=== PATIENT | male | born 1965 | race Caucasian/White ===

== ENCOUNTER 2025-01-30 09:30 | Outpatient (AMB) | payer BC, SELFPAY ==
--- NOTE | 2025-01-30 09:38 | MHC.OFFVIS ---
Vital Signs 01/30/25 09:47 Height 5 ft 11 in Weight 165 lb BMI 23.0 Intake Visit Reasons: NPV-Back pain (imaging @ [facility]) Intake Note: This is a 60 year old male here for New Patient visit for low pack pain, X-ray done at [facility]. Metal Off Bearer Required: No Allergies No Known Allergies Allergy (Verified 01/30/25 09:49) Medication List - Last Reconciled 01/30/25 by Annmarie Dodson RN No Known Home Meds HPI Comments Details: History of Present Illness The patient is a 60-year-old male presenting with chronic back pain. The back pain is characterized by stiffness, particularly after prolonged sitting, and is managed with ice and heat applications. The pain is primarily in the mid-back, occasionally radiating to the lower back and hip, more on the right side. The patient has arthritis and disc degeneration, with x-ray findings indicating degenerative disc disease. These conditions are attributed to natural wear and tear, possibly worsened by his active lifestyle, including activities like golf and skiing. The patient also has colitis, affecting his medication options, particularly NSAIDs. He has a history of knee surgery, limiting certain exercises, but maintains an active lifestyle with TRX workouts, yoga, and biking. He uses Tylenol occasionally and has found muscle relaxants like cyclobenzaprine effective during acute pain episodes. Pain Description - Onset and Timing: Chronic, persistent pain with stiffness, particularly after prolonged sitting. - Quality and Character: Stiffness rather than debilitating pain. - Primary Location: Mid-back, occasionally radiating to lower back and hip, predominantly on the right side. - Exacerbating Factors: Prolonged sitting, rotational exercises. - Relieving Factors: Ice, heat, and occasional use of Tylenol. Results - Imaging: X-ray confirms [id number] degenerative disc disease. [facility] Social History (Updated 01/30/25 @ 09:45 by Candis Hess MA) Alcohol intake: current Alcohol intake frequency: holidays/special occasions only Patient Tobacco Use Status: Never used Tobacco Review of Systems Narrative Review of Systems - Musculoskeletal: Reports stiffness in the back, denies debilitating pain. - Neurological: Denies radiating pain to legs, denies weakness. - Gastrointestinal: Reports history of colitis, avoids certain foods and medications. Physical Exam Exam Exam: Thoracic spine: He is tender to the T7 spinous process. His chest rises and falls symmetrically. His chest rise and falls symmetrically. Lumbar Spine: He is tender to lower lumbar facets. He is otherwise nontender. Full range of motion of his lumbar spine. He does have an increase in pain with facet loading. Lhermittes sign: Negative Heel Toe walk: Normal Left straight leg raise: Negative Right straight leg raise: Negative Special tests Yvette test: Negative Ganslen's test: Negative SI Joint compression test: Negative Janna test: Negative Piriformis stretch: Negative Lower Extremities: Full range of motion bilateral lower extremities. No calf pain or edema. Lower Extremities Sensation: Intact to lower extremities bilaterally Strength L2 (Psoas): 5/5 on the left and 5/5 on the right. L3 (Quadriceps): 5/5 on the left and 5/5 on the right. L4 (Anterior tibialis): 5/5 on the left and 5/5 on the right. L5 (extensor hallucis longus) 5/5 on the left and 5/5 on the right. S1 (gastrocnemius): 5/5 on the left and 5/5 on the right. Deep tendon reflexes L4: (Patellar) Left 2+ Right 2+ S1: (Achilles) Left 2+ Right 2+ Babinski: Downgoing No pathologic clonus. No involuntary movement. Vital Signs: BMI result Body Mass Index 23.0 Assessment & Plan Assessment & Plan (1) Spondylosis: Code(s): M47.9 - Spondylosis, unspecified Category: Medical (2) Back pain: Code(s): M54.9 - Dorsalgia, unspecified Category: Medical Plan Pain Management - Affect: Pain impacts daily activities but is managed with exercise and lifestyle modifications. - Analgesia: Occasional use of Tylenol and muscle relaxants like cyclobenzaprine during acute episodes. - Adverse Effects: Avoidance of NSAIDs due to colitis. - Activities of Daily Living: Maintains an active lifestyle with modifications to exercise routines. - Aberrant Drug Related Behaviors: None reported. Plan Patient was informed and verbally consented to the use of an ambient scribe for clinic note documentation during this visit. 1. Back Pain The patient will continue wit home exercises for back pain management, with the addition of turmeric as a natural anti-inflammatory. Cyclobenzaprine is prescribed for acute pain episodes, and NSAIDs are avoided due to colitis. The patient is encouraged to maintain an active lifestyle with appropriate exercise modifications. 2. Arthritis Management of arthritis includes lifestyle changes to minimize joint stress, focusing on low-impact exercises and avoiding high-impact activities. Turmeric is recommended as a natural anti-inflammatory, with a consultation with a overseer kosher kitchen advised due to colitis. 3. Disc Degeneration Disc degeneration management includes physical therapy and exercises to enhance back strength and flexibility. The patient is advised to avoid rotational exercises and consider turmeric for its anti-inflammatory properties. Thank you for allowing me to participate in the care of your patient. Coding Level of Care Code Tele New Pt Level 3 (40754) Diagnoses Spondylosis M47.9 Back pain M54.9
[2025-01-30 09:47] VITALS: BMI 23.0
--- OUTSIDE RECORDS SUMMARY | 2025-01-30 10:46 | XMS_ITS | Clinical Summary ---
Author Organization [facility] Address [address] [place] [phone] Phone Care Team Providers Care Data [employer] Software Consultant Name Role Phone Kory Mtz Primary Care Provider + [phone] Allergies No known active allergies Medications multivitamin tablet Take 1 tablet by mouth 1 (one) time each day. Active Surgical History Surgery Date Site/Laterality Comments KNEE SURGERY Right TOTAL COLECTOMY 03/26/1988 - 03/25/1989 Medical History Medical History Date Comments Ulcerative colitis ([facility] V24, [facility] V28) Social History Tobacco Use Types Packs/Day Years Used Date Smoking Tobacco: Never Smokeless Tobacco: Never Tobacco Cessation:Counseling Given: Not Answered Alcohol Use Standard Drinks/Week Comments Yes 0 (1 standard drink = 0.6 oz pur e alcohol) once/month Interpersonal Safety Answer Date Record ed Physical Abuse Unrecognized value 02/11/2024 Verbal Abuse Unrecognized value 02/11/2024 Sex and Gender Information Value Date Recorded Sex Assigned at Not on file Legal Sex Male 5:11 PM EST Gender Identity Not on file Sexual Orientation Not on file Obstetrics History Last Filed Vital Signs Vital Sign Reading Time Taken Comments Blood Pressure 119/83 02/11/2024 8:53 AM EST Pulse 61 02/11/2024 8:53 AM EST Temperature 36.3 C (97.3 F) 02/11/2024 8:33 AM EST Respiratory Rate 16 02/11/2024 8:53 AM EST Oxygen Saturation 99% 02/11/2024 8:53 AM EST Inhaled Oxygen Concentration - - Weight 72.6 kg (160 lb) 02/11/2024 7:52 AM EST Height 180.3 cm (5' 11 ) 02/11/2024 7:52 AM EST Body Mass Index 22.32 02/11/2024 7:52 AM EST Plan of Treatment Health Maintenance Due Date Last Done Comments DTaP,Tdap,and Td Vaccines (1 - Tdap) 01/26/1983 Pneumococcal Vaccine: 50+ Years (1 of 1 - PCV) 01/26/2014 Zoster Vaccines (2 of 2) 07/12/2022 05/17/2022 Cholesterol Screening (Lipid Panel) 01/09/2024 HIV Screening 01/09/2024 Hepatitis C Screening 01/09/2024 Social Influencers of Health Screening 01/09/2024 Depression Screening 03/26/2024 Influenza Vaccine (#1) 2024 , 12/25/2022, 12/27/2019, Additional history exists RSV Immunization Adult Patients (1 - 1-dose 75+ series) 01/26/2039 COVID-19 Vaccine Completed 12/19/2023, , 01/19/2021, Additional history exists Colorectal Cancer Screening: Colonoscopy Discontinued 02/11/2024 HIB Vaccines Aged Out No longer eligi ble based on patient's age to complete this topic HPV Vaccines Aged Out No longer eligi ble based on patient's age to complete this topic Hepatitis A Vaccines Aged Out No long er eligible based on patient's age to complete this topic Hepatitis B Vaccines Aged Out No long er eligible based on patient's age to complete this topic IPV Vaccines Aged Out No longer eligi ble based on patient's age to complete this topic MMR Vaccines Aged Out No longer eligi ble based on patient's age to complete this topic Meningococcal ACWY Vaccine Aged Out N o longer eligible based on patient's age to complete this topic Meningococcal B Vaccine Aged Out No l onger eligible based on patient's age to complete this topic RSV Immunization Patients Under 20 months Aged Out No longer eligible based on patient's age to complete this topic Varicella Vaccines Aged Out No longer eligible based on patient's age to complete this topic Procedures Procedure Name Priority Date/Time Associated Diagnosis Comments COLONOSCOPY Routine 02/11/2024 8:32 AM EST Ulcerative (chronic) pancolitis without complications (CMS/HCC V24, CMS/HCC V28) from Last 3 Months or Most Recently Relevant to Health Maintenance Results * COLONOSCOPY Anesthesia - MAC; [facility] ENDOSCOPY (02/11/2024 8:32 AM EST) Anatomical Region Laterality Modality Endoscopy 02/11/2024 8:04 AM EST Impressions 02/11/2024 8:23 AM EST - A few erosions in the ileoanal pouch. Biopsied. Recommendation: - Await pathology results. - Resume previous diet. - Continue present medications. Narrative 02/11/2024 8:[address] [facility] Patient Name: Kacy Echevarria Procedure Date: 02/11/2024 8:04 AM Date of : 1965 Age: 59 Gender: Male Note Status: Finalized Attending MD: Talat Mcnamara MD, Procedure Date No Time: 02/11/2024 Procedure: Pouchoscopy Indications: History of total colectomy, High risk colon cancer surveillance: Ulcerative pancolitis of 8 (or more) years duration Providers: Talat Mcnamara MD Referring MD: Talat Mcnamara MD Medicines: Monitored Anesthesia Care Complications: No immediate complications. Estimated Blood Loss: Estimated blood loss was minimal. Procedure: After obtaining informed consent, the endoscope was passed under direct vision. Throughout the procedure, the patient's blood pressure, pulse, and oxygen saturations were monitored continuously. The Olympus Gastroscope was introduced through the anus and advanced to the xiang-terminal ileum. The procedure was performed without difficulty. The patient tolerated the procedure well. The quality of the bowel preparation was adequate. Findings: The ileoanal pouch contained a few non-bleeding erosions. These along suture line. Otherwise looked fine, and distal ileum inspected and fine as well.. Biopsies were taken with a cold forceps for histology. Procedure Code(s): --- Professional --- 26150, Endoscopic evaluation of small intestinal pouch (eg, Kock pouch, ileal reservoir [S or J]); with biopsy, single or multiple Diagnosis Code(s): --- Professional --- K51.00, Ulcerative (chronic) pancolitis without complications K63.3, Ulcer of intestine Z90.49, Acquired absence of other specified parts of digestive tract CPT copyright 2020 [employer]. All rights reserved. The codes documented in this report are preliminary and upon filter press pumper review may be revised to meet current compliance requirements. MD Talat Kaye MD 02/11/2024 8:23:08 AM This report has been signed electronically.Talat Mcnamara MD Number of Addenda: 0 Note Initiated On: 02/11/2024 8:04 AM Scope In: Scope Out: Endoscopy Department at [facility] - [address] [place] [phone] Procedure Note Talat Mcnamara MD - 02/11/2024 [facility] Patient Name: Kacy Echevarria Procedure Date: 02/11/2024 8:04 AM Date of : 1965 Age: 59 Gender: Male Note Status: Finalized Attending MD: Talat Mcnamara MD, Procedure Date No Time: 02/11/2024 Procedure: Pouchoscopy Indications: History of total colectomy, High risk colon cancer surveillance: Ulcerative pancolitis of 8 (or more) years duration Providers: Talat Mcnamara MD Referring MD: Talat Mcnamara MD Medicines: Monitored Anesthesia Care Complications: No immediate complications. Estimated Blood Loss: Estimated blood loss was minimal. Procedure: After obtaining informed consent, the endoscope was passed under direct vision. Throughout theprocedure, the patient's blood pressure, pulse, and oxygen saturations were monitored continuously. TheOlympus Gastroscope was introduced through the anus and advanced to the xiang-terminal ileum. The procedurewas performed without difficulty. The patient tolerated the procedure well. The quality of the bowel preparation was adequate. Findings: The ileoanal pouch contained a few non-bleeding erosions. These along suture line. Otherwise looked fine, and distal ileum inspected and fine as well.. Biopsies were taken with a cold forceps forhistology. Procedure Code(s): --- Professional --- 33990, Endoscopic evaluation of small intestinalpouch (eg, Kock pouch, ileal reservoir [S or J]); with biopsy, single or multiple Diagnosis Code(s): --- Professional --- K51.00, Ulcerative (chronic) pancolitis without complications K63.3, Ulcer of intestine Z90.49, Acquired absence of other specified partsof digestive tract CPT copyright 2020 [employer]. All rights reserved. The codes documented in this report are preliminary and upon filter press pumper reviewmay be revised to meet current compliance requirements. MD Talat Kaye MD 02/11/2024 8:23:08 AM This report has been signed electronically.Talat Mcnamara MD Number of Addenda: 0 Note Initiated On: 02/11/2024 8:04 AM Scope In: Scope Out: Endoscopy Department at [facility] - [address] [place] [phone] IMPRESSION: - A few erosions in the ileoanal pouch. Biopsied. Recommendation: - Await pathology results. - Resume previous diet. - Continue present medications. Talat Mcnamara MD GI~PROCEDURE ORDERABLES Final R esult from Last 3 Months or Most Recently Relevant to Health Maintenance Insurance [facility] Care Teams Data Communications Software Consultant Relationship Specialty Start Date End Date Kory Mtz PA [address] [phone] PCP - General Internal Medicine 02/07/24
--- OUTSIDE RECORDS SUMMARY | 2025-01-30 10:46 | XMS_ITS | Data Portability ---
Author Organization [facility], Main Office Address [address] [facility] [address] [place] [address] Care Team Providers Care Ota Name Role Phone ALAN CHRISTIE Primary Care Provider TALAT SOSA 3D Artist PATEL DENNIS Color Paste Mixer [facility] PHYSICALTH ERAPY (FRANK PAL[place]) Orthopedic Surgeon Unavailable Psychologist Unavailable Assessment Encounter Date Assessment Date Assessment LastModified by Organization Details LastModified Time 06/24/2024 06/24/2024 This service was provided using telemedicine. Patient consented to telephone visit Patient was located other than home in the [facility]. Provider was located in the office. No other persons participated in the telemedicine visit except for the patient unless otherwise indicated here. Total time of visit was 13 minutes. pmadden Not available 06/24/2024 16:40:09 Plan of Treatment Reminders Order Date Submit Date Provider Last Modified By Organization Details Last Modified Time Details Appointments None record ed. Lab HbA1c (hemog lobin A1c), blood 2024 025 DARIUS [facility] (Centralized Electronic Ordering - All Locations), Patient Can Go To The Location Of Their Choice, [address] 08:07:04 testos terone , free + total, serum 2024 025 DARIUS [facility] (Centralized Electronic Ordering - All Locations), Patient Can Go To The Location Of Their Choice, [address] 08:07:03 CMP, serum or plasma 2024 025 DARIUS [facility] (Centralized Electronic Ordering - All Locations), Patient Can Go To The Location Of Their Choice, [address] 5 08:07:03 CBC w/ auto diff 2024 025 DARIUS [facility] (Centralized Electronic Ordering - All Locations), Patient Can Go To The Location Of Their Choice, [address] 5 08:07:02 PSA, total, serum or plasma 2023 024 DARIUS [facility] (Centralized Electronic Ordering - All Locations), Patient Can Go To The Location Of Their Choice, [address] 5 06:08:17 lipid panel, serum 2022 023 DARIUS [facility], [address], [address], [place], [address], 4 06:07:54 CBC w/ auto diff 2022 023 [email or web address] [facility], [address], [address], [place], [address], 4 11:06:20 CMP, serum or plasma 2022 023 DARIUS [facility], [address], [address], [place], [address], 4 06:07:52 Referral physic al medici ne and rehabi litati on referr de 2024 025 justin Jade MD, [address] [facility], [address], [place], [address], 5 09:44:13 hand surgeo n referr al 2024 025 DARIUS Garcia MD, [facility], [place], [address], 5 14:58:18 gastro entero logist referr al 2023 024 carlos Sosa MD, [address] [facility], [address], [place], [address], 11:59:10 Procedures None record ed. Surgeries None record ed. Imaging XR, lumbar spine 2024 025 [facility], [address] [facility], [place], [place], [address], 09:42:28 Medication Orders silden afil 50 mg tablet 2024 025 [facility]armacy #[id number], [address], [place], [address], 16:35:48 econaz ole nitrat e 1 % topica l cream [email or web address]/Pharmacy #[id number], [address], [place], [address], 14:36:33 Patient Targets Encounter Date Encounter Id Patient Goals Patient Target Last Modified By Organization Details Last Modified Time 10/20/2024 [id number] Ongoing of LDL Direct <100 Not available Not available Not available Ongoing of LDL Direct yearly Not available Not available Not available 10/20/2024 [id number] Pt agrees to follow low fat diet, avoid saturated fats , decrease carbohydrate intake to 45 - 50 gm per meal , pt agrees to develop a regular pattern of exercise such as walking 30 minutes a day 3 times a week, Pt will keep a record of exercise and activity level Patient preferences and goals incorporated in plan and updated/modifie d as needed to reflect progress toward goal. pmadden Not available 10/20/2024 09:40:32 Patient Instructions Encounter Date Encounter Id Patient Instructions Last Modified By Organization Details Last Modified Time 05/10/2022 [id number] Patient will follow up and keep appointment as scheduled. pmadden Not available 05/10/2022 15:39:40 10/16/2022 [id number] A healthy lifestyle: care instructions pmadden Not available 10/16/2022 15:28:58 Well Visit 50 to 65: Care Instructions pmadden Not available 10/16/2022 15:28:58 Medications (OTC , herbal therapies, supplements) reviewed and reconciled with patient and or caregiver, including potential side effects, drug interactions, instructions, and the consequences of not taking medication. Reviewed potential barriers to medication adherence, such as side effects from medication or cost of medication. pmadden Not available 10/16/2022 15:32:14 10/18/2023 [id number] Prostate Cancer Screening pmadden Not available 10/18/2023 14:09:24 Well Visit 50 to 65: Care Instructions pmadden Not available 10/18/2023 14:09:24 Medications (OTC , herbal therapies, supplements) reviewed and reconciled with patient and or caregiver, including potential side effects, drug interactions, instructions, and the consequences of not taking medication. Reviewed potential barriers to medication adherence, such as side effects from medication or cost of medication. pmadden Not available 10/18/2023 14:09:06 06/24/2024 [id number] Dupuytren's Disease: Care Instructions pmadden Not available 06/24/2024 16:40:38 Patient will follow up and keep appointment as scheduled. pmadden Not available 06/24/2024 16:41:00 10/20/2024 [id number] Well Visit 50 to 65: Care Instructions pmadden Not available 10/20/2024 09:32:27 Medications (OTC , herbal therapies, supplements) reviewed and reconciled with patient and or caregiver, including potential side effects, drug interactions, instructions, and the consequences of not taking medication. Reviewed potential barriers to medication adherence, such as side effects from medication or cost of medication. 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 METAB OLIC PANEL (14) glucose 92 mg/dL 70-99 Not Available [facility] ([facility]) [address] [place], [address], 09/11/2023 06:07:52 09/10/19 24 09/10/2023 COMP. METAB OLIC PANEL (14) BUN 18 mg/dL 6-24 Not Available [facility] ([facility]) [address] [place], [address], 09/11/2023 06:07:52 09/10/19 24 09/10/2023 COMP. METAB OLIC PANEL (14) creatinine 0.98 mg/dL 0.76-1 .27 Not Available [facility] ([facility]) [address] [place], [address], 09/11/2023 06:07:52 09/10/19 24 09/10/2023 COMP. METAB OLIC PANEL (14) eGFR 89 mL/mi n/1.7 3 >59 Not Available [facility] ([facility]) [address] [place], [address], 09/11/2023 06:07:52 09/10/19 24 09/10/2023 COMP. METAB OLIC PANEL (14) BUN/creatini ne ratio 18 9-20 Not Available [facility] ([facility]) [address] [place], [address], 09/11/2023 06:07:52 09/10/19 24 09/10/2023 COMP. METAB OLIC PANEL (14) sodium 138 mmol/ L 134-14 4 Not Available [facility] ([facility]) [address] [place], [address], 09/11/2023 06:07:52 09/10/19 24 09/10/2023 COMP. METAB OLIC PANEL (14) potassium 4.7 mmol/ L 3.5-5. 2 Not Available [facility] ([facility]) [address] [place], [address], 09/11/2023 06:07:52 09/10/19 24 09/10/2023 COMP. METAB OLIC PANEL (14) chloride 103 mmol/ L 96-106 Not Available [facility] ([facility]) [address] [place], [address], 09/11/2023 06:07:52 09/10/19 24 09/10/2023 COMP. METAB OLIC PANEL (14) carbon dioxide, total 24 mmol/ L 20-29 Not Available [facility] ([facility]) [address] [place], [address], 09/11/2023 06:07:52 09/10/19 24 09/10/2023 COMP. METAB OLIC PANEL (14) calcium 9.0 mg/dL 8.7-10 .2 Not Available [facility] ([facility]) [address] [place], [address], 09/11/2023 06:07:52 09/10/19 24 09/10/2023 COMP. METAB OLIC PANEL (14) protein, total 6.9 g/dL 6.0-8. 5 Not Available [facility] ([facility]) [address] [place], [address], 09/11/2023 06:07:52 09/10/19 24 09/10/2023 COMP. METAB OLIC PANEL (14) albumin 4.3 g/dL 3.8-4. 9 Not Available [facility] ([facility]) [address] [place], [address], 09/11/2023 06:07:52 09/10/19 24 09/10/2023 COMP. METAB OLIC PANEL (14) globulin, total 2.6 g/dL 1.5-4. 5 Not Available [facility] ([facility]) [address] [place], [address], 09/11/2023 06:07:52 09/10/19 24 09/10/2023 COMP. METAB OLIC PANEL (14) bilirubin, total 0.6 mg/dL 0.0-1. 2 Not Available [facility] ([facility]) [address] [facility], [place], [address], 09/11/2023 06:07:52 09/10/19 24 09/10/2023 COMP. METAB OLIC PANEL (14) alkaline phosphatase 64 IU/L 44-121 Not Available [facility] ([facility]) [address] [facility], [place], [address], 09/11/2023 06:07:52 09/10/19 24 09/10/2023 COMP. METAB OLIC PANEL (14) AST (SGOT) 27 IU/L 0-40 Not Available [facility] ([facility]) [address] [facility], [place], [address], 09/11/2023 06:07:52 09/10/19 24 09/10/2023 COMP. METAB OLIC PANEL (14) ALT (SGPT) 17 IU/L 0-44 Not Available [facility] ([facility]) [address] [facility], [place], [address], 09/11/2023 06:07:52 09/10/19 24 09/10/2023 CBC, PLATE LET, NO DIFFE RENTI AL WBC 4.5 x10e3 /uL 3.4-10 .8 Not Available [facility] ([facility]) [address] [facility] [place], [address], 09/11/2023 06:07:53 09/10/19 24 09/10/2023 CBC, PLATE LET, NO DIFFE RENTI AL RBC 4.87 x10e6 /uL 4.14-5 .80 Not Available [facility] ([facility]) [address] [facility], [place], [address], 09/11/2023 06:07:53 09/10/19 24 09/10/2023 CBC, PLATE LET, NO DIFFE RENTI AL hemoglobin 15.0 g/dL 13.0-1 7.7 Not Available [facility] ([facility]) [address] [facility], [place], [address], 09/11/2023 06:07:53 09/10/19 24 09/10/2023 CBC, PLATE LET, NO DIFFE RENTI AL hematocrit 46.2 % 37.5-5 1.0 Not Available [facility] ([facility]) [address] [facility], [place], [address], 09/11/2023 06:07:53 09/10/1909/10/2023 CBC, PLATE LET, NO DIFFE RENTI AL MCV 95 fL 79-97 Not Available [facility] ([facility]) [address] [facility], [place], [address], 09/11/2023 06:07:53 09/10/19 24 09/10/2023 CBC, PLATE LET, NO DIFFE RENTI AL MCH 30.8 pg 26.6-3 3.0 Not Available [facility] ([facility]) [address] [facility], [place], [address], 09/11/2023 06:07:53 09/10/19 24 09/10/2023 CBC, PLATE LET, NO DIFFE RENTI AL MCHC 32.5 g/dL 31.5-3 5.7 Not Available [facility] ([facility]) [address] [facility], [place], [address], 09/11/2023 06:07:53 09/10/19 24 09/10/2023 CBC, PLATE LET, NO DIFFE RENTI AL RDW 12.6 % 11.6-1 5.4 Not Available [facility] ([facility]) [address] [place], [address], 09/11/2023 06:07:53 09/10/19 24 09/10/2023 CBC, PLATE LET, NO DIFFE RENTI AL platelets 205 x10e3 /uL 150-45 0 Not Available [facility] ([facility]) [address] [facility], [place], [address], 09/11/2023 06:07:53 09/10/19 24 09/10/2023 CBC, PLATE LET, NO DIFFE RENTI AL NRBC RESIDENT MEDICAL OFFICER Not Available [facility] ([facility]) [address] [facility], [place], [address], 09/11/2023 06:07:53 09/10/19 24 09/10/2023 LIPID PANEL cholesterol, total 175 mg/dL 100-19 9 Not Available [facility] ([facility]) [address] [facility], [place], [address], 09/11/2023 06:07:54 09/10/19 24 09/10/2023 LIPID PANEL triglyceride s 69 mg/dL 0-149 Not Available [facility] ([facility]) [address] [place], [address], 09/11/2023 06:07:54 09/10/19 24 09/10/2023 LIPID PANEL HDL cholesterol 63 mg/dL >39 Not Available [facility] ([facility]) [address] [facility], [place], [address], 09/11/2023 06:07:54 09/10/19 24 09/10/2023 LIPID PANEL VLDL cholesterol clyde 13 mg/dL 5-40 Not Available [facility] ([facility]) [address] [place], [address], 09/11/2023 06:07:54 09/10/19 24 09/10/2023 LIPID PANEL LDL chol calc ([facility]) 99 mg/dL 0-99 Not Available [facility] ([facility]) [address] [place], [address], 09/11/2023 06:07:54 09/10/19 24 09/10/2023 LIPID PANEL LDL calc comment: RESIDENT MEDICAL OFFICER Not Available [facility] ([facility]) [address], [place], [address], 09/11/2023 06:07:54 02/11/20 24 02/11/2024 TISSU E EXAM .note SEE NOTE Origi nal Order ing Provi shai: TALAT S JUSTAKA S [facility] - [address], [place], [place] [address] Not Available [address], [address], 02/12/2024 11:10:54 02/11/20 24 02/11/2024 TISSU E EXAM final diagnosis A. SMALL INTEST INE, ILEUM, POUCH BIOPSY : - Ileal mucos a with patch y villi blunt ing, patch y nancy a propr ia acute infla mmati on, rare crypt itis, focal pylor ic gland metap lasia , yahir tible with acute pouch itis. - Negat mary for granu ellie and dyspl roderick. Elect mani rae d by Yuko Guan MD on 02/11 at 11:05 AM Not Available [address], [address], 02/12/2024 11:10:54 02/11/20 24 02/11/2024 TISSU E EXAM gross description A. SMALL INTEST INE, ILEUM, POUCH BIOPSY : Label ed with the patie nt's name and infor matbrody nCorby Recei maulik in forma ismael, are three irreg ular soft, velve ty, fregoso-p ink to red tissu e fragm ents, appro ximat yoselin rangi ng from 0.3 cm to 0.6 cm in great est diame ters, which are wrapp ed in paper and submi tted in toto in one casse tte, three piece s, multi ple level s. dvb/S L Not Available [address], [address], 02/12/2024 11:10:54 02/11/20 24 02/11/2024 TISSU E EXAM disclaimer Unles s other moreno speci fied, all tissu e is 10% NB forma ismael fixed and paraf fin embed ded. Not Available [facility] [address] [facility], [place], [address], 02/12/2024 11:10:54 04/15/19 25 04/16/2024 PROST ATE-S PECIF IC AG prostate specific Ag 1.8 NG/mL 0.0-4. 0 normal Andrew ECLIA metho dolog y. Accor ding to the Ameri can [employer]o g[employer] iatio n, Serum PSA shoul d decre ase and remai n at undet ectab le level s after radic al prost atect aime. The AUA defin es bioch emica l recur rence as an initi al PSA value 0.2 ng/mL or great er follo wed by a subse quent confi rmato ry PSA value 0.2 ng/mL or great er. Value s obtai bradford with diffe rent assay metho ds or kits canno t be used inter peng maria d . Resul ts canno t be inter prete d as absol hoopa evide nce of the prese nce or absen ce of karena johnson se. Not Available [facility] ([facility]) [address] [facility], [place], [address], 04/16/2024 06:08:17 04/15/19 25 04/16/2024 CBC WITH DIFFE RENTI AL/PL ATELE T WBC 4.3 x10e3 /uL 3.4-10 .8 normal Not Available [facility] ([facility]) [address] [facility], [place], [address], 04/16/2024 06:08:19 04/15/19 25 04/16/2024 CBC WITH DIFFE RENTI AL/PL ATELE T RBC 5.32 x10e6 /uL 4.14-5 .80 normal Not Available [facility] ([facility]) [address] [facility], [place], [address], 04/16/2024 06:08:19 04/15/1904/16/2024 CBC WITH DIFFE RENTI AL/PL ATELE T hemoglobin 16.2 g/dL 13.0-1 7.7 normal Not Available [facility] ([facility]) [address] [facility], [place], [address], 04/16/2024 06:08:19 04/15/1904/16/2024 CBC WITH DIFFE RENTI AL/PL ATELE T hematocrit 49.7 % 37.5-5 1.0 normal Not Available [facility] ([facility]) [address] [facility], [place], [address], 04/16/2024 06:08:19 04/15/1904/16/2024 CBC WITH DIFFE RENTI AL/PL ATELE T MCV 93 fL 79-97 normal Not Available [facility] ([facility]) [address] [facility], [place], [address], 04/16/2024 06:08:04/15/1904/16/2024 CBC WITH DIFFE RENTI AL/PL ATELE T MCH 30.5 pg 26.6-3 3.0 normal Not Available [facility] ([facility]) [address] [place], [address], 04/16/2024 06:08:19 04/15/1904/16/2024 CBC WITH DIFFE RENTI AL/PL ATELE T MCHC 32.6 g/dL 31.5-3 5.7 normal Not Available [facility] ([facility]) [address] [place], [address], 04/16/2024 06:08:19 04/15/19 25 04/16/2024 CBC WITH DIFFE RENTI AL/PL ATELE T RDW 12.2 % 11.6-1 5.4 Not Available [facility] ([facility]) [address] [facility], [place], [address], 04/16/2024 06:08:19 04/15/1904/16/2024 CBC WITH DIFFE RENTI AL/PL ATELE T platelets 228 x10e3 /uL 150-45 0 normal Not Available [facility] ([facility]) [address] [facility], [place], [address], 04/16/2024 06:08:19 04/15/19 25 04/16/2024 CBC WITH DIFFE RENTI AL/PL ATELE T neutrophils 54 % not estab. normal Not Available [facility] ([facility]) [address] [facility], [place], [address], 04/16/2024 06:08:19 04/15/19 25 04/16/2024 CBC WITH DIFFE RENTI AL/PL ATELE T lymphs 32 % not estab. normal Not Available [facility] ([facility]) [address] [facility], [place], [address], 04/16/2024 06:08:04/15/1904/16/2024 CBC WITH DIFFE RENTI AL/PL ATELE T monocytes 9 % not estab. normal Not Available [facility] ([facility]) [address] [facility], [place], [address], 04/16/2024 06:08:19 04/15/1904/16/2024 CBC WITH DIFFE RENTI AL/PL ATELE T eos 4 % not estab. normal Not Available [facility] ([facility]) [address] [facility], [place], [address], 04/16/2024 06:08:19 04/15/19 25 04/16/2024 CBC WITH DIFFE RENTI AL/PL ATELE T basos 1 % not estab. normal Not Available [facility] ([facility]) [address] [facility], [place], [address], 04/16/2024 06:08:19 04/15/19 25 04/16/2024 CBC WITH DIFFE RENTI AL/PL ATELE T immature cells RESIDENT MEDICAL OFFICER Not Available [facility] ([facility]) [address] [place], [address], 04/16/2024 06:08:19 04/15/19 25 04/16/2024 CBC WITH DIFFE RENTI AL/PL ATELE T neutrophils (absolute) 2.3 x10e3 /uL 1.4-7. 0 normal Not Available [facility] ([facility]) [address] [place], [address], 04/16/2024 06:08:19 04/15/1904/16/2024 CBC WITH DIFFE RENTI AL/PL ATELE T lymphs (absolute) 1.4 x10e3 /uL 0.7-3. 1 normal Not Available [facility] ([facility]) [address] [place], [address], 04/16/2024 06:08:19 04/15/19 25 04/16/2024 CBC WITH DIFFE RENTI AL/PL ATELE T monocytes(ab solute) 0.4 x10e3 /uL 0.1-0. 9 normal Not Available [facility] ([facility]) [address] [place], [address], 04/16/2024 06:08:19 04/15/1904/16/2024 CBC WITH DIFFE RENTI AL/PL ATELE T eos (absolute) 0.2 x10e3 /uL 0.0-0. 4 normal Not Available [facility] ([facility]) [address] [place], [address], 04/16/2024 06:08:19 04/15/19 25 04/16/2024 CBC WITH DIFFE RENTI AL/PL ATELE T baso (absolute) 0.0 x10e3 /uL 0.0-0. 2 normal Not Available [facility] ([facility]) [address] [facility], [place], [address], 04/16/2024 06:08:19 04/15/19 25 04/16/2024 CBC WITH DIFFE RENTI AL/PL ATELE T immature granulocytes 0 % not estab. Not Available [facility] ([facility]) [address] [facility], [place], [address], 04/16/2024 06:08:19 04/15/19 25 04/16/2024 CBC WITH DIFFE RENTI AL/PL ATELE T immature grans (abs) 0.0 x10e3 /uL 0.0-0. 1 Not Available [facility] ([facility]) [address] [facility], [place], [address], 04/16/2024 06:08:19 04/15/19 25 04/16/2024 CBC WITH DIFFE RENTI AL/PL ATELE T NRBC RESIDENT MEDICAL OFFICER Not Available [facility] ([facility]) [address] [facility], [place], [address], 04/16/2024 06:08:19 04/15/1904/16/2024 CBC WITH DIFFE RENTI AL/PL ATELE T hematology comments: RESIDENT MEDICAL OFFICER Not Available [facility] ([facility]) [address] [facility], [place], [address], 04/16/2024 06:08:19 04/15/19 25 04/16/2024 COMP. METAB OLIC PANEL (14) glucose 99 mg/dL 70-99 normal Not Available [facility] ([facility]) [address] [facility], [place], [address], 04/16/2024 06:08:19 04/15/19 25 04/16/2024 COMP. METAB OLIC PANEL (14) BUN 18 mg/dL 8-27 normal Not Available [facility] ([facility]) [address] [facility], [place], [address], 04/16/2024 06:08:19 01/21/20 25 04/16/2024 COMP. METAB OLIC PANEL (14) creatinine 0.95 mg/dL 0.76-1 .27 normal Not Available [facility] ([facility]) [address] [facility] [place], [address], 04/16/2024 06:08:19 04/15/19 25 04/16/2024 COMP. METAB OLIC PANEL (14) eGFR 92 mL/mi n/1.7 3 >59 normal Not Available [facility] ([facility]) [address] [facility] [place], [address], 04/16/2024 06:08:19 04/15/19 25 04/16/2024 COMP. METAB OLIC PANEL (14) BUN/creatini ne ratio 19 10-24 normal Not Available [facility] ([facility]) [address] [facility], [place], [address], 04/16/2024 06:08:19 04/15/19 25 04/16/2024 COMP. METAB OLIC PANEL (14) sodium 139 mmol/ L 134-14 4 normal Not Available [facility] ([facility]) [address] [facility] [place], [address], 04/16/2024 06:08:19 04/15/19 25 04/16/2024 COMP. METAB OLIC PANEL (14) potassium 4.5 mmol/ L 3.5-5. 2 normal Not Available [facility] ([facility]) [address] [facility] [place], [address], 04/16/2024 06:08:19 04/15/19 25 04/16/2024 COMP. METAB OLIC PANEL (14) chloride 102 mmol/ L 96-106 normal Not Available [facility] ([facility] [address] [facility] [place], [address], 04/16/2024 06:08:19 04/15/19 25 04/16/2024 COMP. METAB OLIC PANEL (14) carbon dioxide, total 25 mmol/ L 20-29 normal Not Available [facility] ([facility]) [address] [place], [address], 04/16/2024 06:08:19 04/15/19 25 04/16/2024 COMP. METAB OLIC PANEL (14) calcium 9.4 mg/dL 8.6-10 .2 normal Not Available [facility] ([facility]) [address] [place], [address], 04/16/2024 06:08:19 04/15/19 25 04/16/2024 COMP. METAB OLIC PANEL (14) protein, total 7.3 g/dL 6.0-8. 5 normal Not Available [facility] ([facility]) [address] [place], [address], 04/16/2024 06:08:19 04/15/19 25 04/16/2024 COMP. METAB OLIC PANEL (14) albumin 4.3 g/dL 3.8-4. 9 normal Not Available [facility] ([facility]) [address] [place], [address], 04/16/2024 06:08:19 04/15/19 25 04/16/2024 COMP. METAB OLIC PANEL (14) globulin, total 3.0 g/dL 1.5-4. 5 Not Available [facility] ([facility]) [address] [facility] [place], [address], 04/16/2024 06:08:19 04/15/19 25 04/16/2024 COMP. METAB OLIC PANEL (14) bilirubin, total 0.5 mg/dL 0.0-1. 2 normal Not Available [facility] ([facility]) [address] [facility] [place], [address], 04/16/2024 06:08:19 04/15/19 25 04/16/2024 COMP. METAB OLIC PANEL (14) alkaline phosphatase 82 IU/L 44-121 normal Not Available [facility] ([facility]) [address] [facility] [place], [address], 04/16/2024 06:08:19 04/15/19 25 04/16/2024 COMP. METAB OLIC PANEL (14) AST (SGOT) 29 IU/L 0-40 normal Not Available [facility] ([facility]) [address] [facility] [place], [address], 04/16/2024 06:08:19 04/15/19 25 04/16/2024 COMP. METAB OLIC PANEL (14) ALT (SGPT) 16 IU/L 0-44 normal Not Available [facility] ([facility]) [address] [place], [address], 04/16/2024 06:08:19 04/15/19 25 04/16/2024 LIPID PANEL cholesterol, total 205 mg/dL 100-19 9 above high normal Not Available [facility] ([facility]) [address] [place], [address], 04/16/2024 06:08:20 04/15/19 25 04/16/2024 LIPID PANEL triglyceride s 74 mg/dL 0-149 normal Not Available [facility] ([facility]) [address] [place], [address], 04/16/2024 06:08:20 04/15/19 25 04/16/2024 LIPID PANEL HDL cholesterol 66 mg/dL >39 normal Not Available [facility] ([facility]) [address] [place], [address], 04/16/2024 06:08:20 04/15/19 25 04/16/2024 LIPID PANEL VLDL cholesterol clyde 13 mg/dL 5-40 Not Available [facility] ([facility]) [address] [place], [address], 04/16/2024 06:08:20 04/15/19 25 04/16/2024 LIPID PANEL LDL chol calc ([facility]) 126 mg/dL 0-99 above high normal Not Available [facility] ([facility]) [address] [place], [address], 04/16/2024 06:08:20 04/15/19 25 04/16/2024 LIPID PANEL LDL calc comment: RESIDENT MEDICAL OFFICER Not Available [facility] ([facility]) [address] [facility] [place], [address], 04/16/2024 06:08:20 10/24/19 25 10/23/2024 CBC WITH DIFFE RENTI AL/PL ATELE T WBC 4.0 x10e3 /uL 3.4-10 .8 normal Not Available [facility] ([facility]) [address] [facility] [place], [address], 10/24/2024 08:07:02 10/24/19 25 10/23/2024 CBC WITH DIFFE RENTI AL/PL ATELE T RBC 4.87 x10e6 /uL 4.14-5 .80 normal Not Available [facility] ([facility]) [address] [facility] [place], [address], 10/24/2024 08:07:02 10/24/19 25 10/23/2024 CBC WITH DIFFE RENTI AL/PL ATELE T hemoglobin 15.1 g/dL 13.0-1 7.7 normal Not Available [facility] ([facility]) [address] [place], [address], 10/24/2024 08:07:02 10/24/19 25 10/23/2024 CBC WITH DIFFE RENTI AL/PL ATELE T hematocrit 47.0 % 37.5-5 1.0 normal Not Available [facility] ([facility]) [address] [place], [address], 10/24/2024 08:07:02 10/24/19 25 10/23/2024 CBC WITH DIFFE RENTI AL/PL ATELE T MCV 97 fL 79-97 normal Not Available [facility] ([facility]) [address] [place], [address], 10/24/2024 08:07:02 10/24/19 25 10/23/2024 CBC WITH DIFFE RENTI AL/PL ATELE T MCH 31.0 pg 26.6-3 3.0 normal Not Available [facility] ([facility]) [address] [facility] [place], [address], 10/24/2024 08:07:02 10/24/19 25 10/23/2024 CBC WITH DIFFE RENTI AL/PL ATELE T MCHC 32.1 g/dL 31.5-3 5.7 normal Not Available [facility] ([facility]) [address] [place], [address], 10/24/2024 08:07:02 10/24/19 25 10/23/2024 CBC WITH DIFFE RENTI AL/PL ATELE T RDW 12.4 % 11.6-1 5.4 Not Available [facility] ([facility]) [address] [place], [address], 10/24/2024 08:07:02 10/24/19 25 10/23/2024 CBC WITH DIFFE RENTI AL/PL ATELE T platelets 224 x10e3 /uL 150-45 0 normal Not Available [facility] ([facility]) [address] [place], [address], 10/24/2024 08:07:02 10/24/19 25 10/23/2024 CBC WITH DIFFE RENTI AL/PL ATELE T neutrophils 56 % not estab. normal Not Available [facility] ([facility]) [address] [place], [address], 10/24/2024 08:07:02 10/24/19 25 10/23/2024 CBC WITH DIFFE RENTI AL/PL ATELE T lymphs 30 % not estab. normal Not Available [facility] ([facility]) [address] [facility] [place], [address], 10/24/2024 08:07:02 10/24/19 25 10/23/2024 CBC WITH DIFFE RENTI AL/PL ATELE T monocytes 10 % not estab. normal Not Available [facility] ([facility]) [address] [facility] [place], [address], 10/24/2024 08:07:02 10/24/19 25 10/23/2024 CBC WITH DIFFE RENTI AL/PL ATELE T eos 3 % not estab. normal Not Available [facility] ([facility]) [address] [facility] [place], [address], 10/24/2024 08:07:02 10/24/19 25 10/23/2024 CBC WITH DIFFE RENTI AL/PL ATELE T basos 1 % not estab. 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 0 normal Not Available [facility] ([facility]) [address] [place], [address], 10/24/2024 08:07:02 10/24/19 25 10/23/2024 CBC WITH DIFFE RENTI AL/PL ATELE T lymphs (absolute) 1.2 x10e3 /uL 0.7-3. 1 normal Not Available [facility] ([facility]) [address] [facility] [place], [address], 10/24/2024 08:07:02 10/24/19 25 10/23/2024 CBC WITH DIFFE RENTI AL/PL ATELE T monocytes(ab solute) 0.4 x10e3 /uL 0.1-0. 9 normal Not Available [facility] ([facility]) [address] [facility] [place], [address], 10/24/2024 08:07:02 10/24/19 25 10/23/2024 CBC WITH DIFFE RENTI AL/PL ATELE T eos (absolute) 0.1 x10e3 /uL 0.0-0. 4 normal Not Available [facility] ([facility]) [address] [facility], [place], [address], 10/24/2024 08:07:02 10/24/19 25 10/23/2024 CBC WITH DIFFE RENTI AL/PL ATELE T baso (absolute) 0.1 x10e3 /uL 0.0-0. 2 normal Not Available [facility] ([facility]) [address] [facility], [place], [address], 10/24/2024 08:07:02 10/24/19 25 10/23/2024 CBC WITH DIFFE RENTI AL/PL ATELE T immature granulocytes 0 % not estab. Not Available [facility] ([facility]) [address] [facility] [place], [address], 10/24/2024 08:07:02 10/24/19 25 10/23/2024 CBC WITH DIFFE RENTI AL/PL ATELE T immature grans (abs) 0.0 x10e3 /uL 0.0-0. 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 METAB OLIC PANEL (14) glucose 88 mg/dL 70-99 normal Not Available [facility] ([facility]) [address], [place], [address], 10/24/2024 08:07:03 10/24/19 25 10/23/2024 COMP. METAB OLIC PANEL (14) BUN 21 mg/dL 8-27 normal Not Available [facility] ([facility]) [address] [facility] [place], [address], 10/24/2024 08:07:03 10/24/19 25 10/23/2024 COMP. METAB OLIC PANEL (14) creatinine 0.91 mg/dL 0.76-1 .27 normal Not Available [facility] ([facility]) [address] [facility] [place], [address], 10/24/2024 08:07:03 10/24/19 25 10/23/2024 COMP. METAB OLIC PANEL (14) eGFR 96 mL/mi n/1.7 3 >59 normal Not Available [facility] ([facility]) [address] [facility] [place], [address], 10/24/2024 08:07:03 10/24/19 25 10/23/2024 COMP. METAB OLIC PANEL (14) BUN/creatini ne ratio 23 10-24 normal Not Available [facility] ([facility]) [address] [facility] [place], [address], 10/24/2024 08:07:03 10/24/19 25 10/23/2024 COMP. METAB OLIC PANEL (14) sodium 137 mmol/ L 134-14 4 normal Not Available [facility] ([facility]) [address] [facility] [place], [address], 10/24/2024 08:07:03 10/24/19 25 10/23/2024 COMP. METAB OLIC PANEL (14) potassium 4.3 mmol/ L 3.5-5. 2 normal Not Available [facility] ([facility]) [address] [facility] [place], [address], 10/24/2024 08:07:03 10/24/19 25 10/23/2024 COMP. METAB OLIC PANEL (14) chloride 101 mmol/ L 96-106 normal Not Available [facility] ([facility]) [address] [facility] [place], [address], 10/24/2024 08:07:03 10/24/19 25 10/23/2024 COMP. METAB OLIC PANEL (14) carbon dioxide, total 23 mmol/ L 20-29 normal Not Available [facility] ([facility]) [address] [facility] [place], [address], 10/24/2024 08:07:03 10/24/19 25 10/23/2024 COMP. METAB OLIC PANEL (14) calcium 9.5 mg/dL 8.6-10 .2 normal Not Available [facility] ([facility]) [address] [facility] [place], [address], 10/24/2024 08:07:03 10/24/19 25 10/23/2024 COMP. METAB OLIC PANEL (14) protein, total 6.9 g/dL 6.0-8. 5 normal Not Available [facility] ([facility]) [address] [facility] [place], [address], 10/24/2024 08:07:03 07/31/20 25 10/23/2024 COMP. METAB OLIC PANEL (14) albumin 4.2 g/dL 3.8-4. 9 normal Not Available [facility] ([facility]) [address] [place], [address], 10/24/2024 08:07:03 10/24/19 25 10/23/2024 COMP. METAB OLIC PANEL (14) globulin, total 2.7 g/dL 1.5-4. 5 Not Available [facility] ([facility]) [address] [place], [address], 10/24/2024 08:07:03 10/24/19 25 10/23/2024 COMP. METAB OLIC PANEL (14) bilirubin, total 0.8 mg/dL 0.0-1. 2 normal Not Available [facility] ([facility]) [address] [facility] [place], [address], 10/24/2024 08:07:03 10/24/19 25 10/23/2024 COMP. METAB OLIC PANEL (14) alkaline phosphatase 72 IU/L 44-121 normal Not Available [facility] ([facility]) [address] [facility] [place], [address], 10/24/2024 08:07:03 10/24/19 25 10/23/2024 COMP. METAB OLIC PANEL (14) AST (SGOT) 24 IU/L 0-40 normal Not Available [facility] ([facility]) [address] [facility] [place], [address], 10/24/2024 08:07:03 10/24/19 25 10/23/2024 COMP. METAB OLIC PANEL (14) ALT (SGPT) 15 IU/L 0-44 normal Not Available [facility] ([facility]) [address] [facility] [place], [address], 10/24/2024 08:07:03 10/24/19 25 10/24/2024 TESTO STERO NE,FR EE AND TOTAL testosterone 495 NG/dL 264-91 6 normal Adult male refer ence inter bassam is based on a popul ation of healt hy nonob colby males (BMI <30) betwe en 19 and 39 years old. Jesus jorge, et.al . JCEM 2017, 102;1 161-1 173. PMID: 30339 103. Not Available [facility] ([facility]) [address] [facility] [place], [address], 10/24/2024 08:07:03 10/24/19 25 10/24/2024 TESTO STERO NE,FR EE AND TOTAL free testosterone (direct) 7.1 pg/mL 6.6-18 .1 Not Available [facility] ([facility]) [address] [place], [address], 10/24/2024 08:07:03 10/24/19 25 10/24/2024 HEMOG LOBIN A1C hemoglobin A1C 5.2 % 4.8-5. 6 normal Predi abete s: 5.7 - 6.4 Diabe kendall: >6.4 Glyce savage contr ol for adult s with diabe kendall: <7.0 Not Available [facility] ([facility]) [address] [facility] [place], [address], 10/24/2024 08:07:04 02/11/20 24 endos copic evalu ation of small intes tinal pouch (PROC ) No observ ation record ed. [address], [address], 06/24/2024 16:20:01 10/22/19 25 10/20/2024 XR, lumba r spine Lumbar Spine 2 or 3 Views Reason : chroni c left sided low back pain withou t sciati ca COMPAR ESTHER: None. FINDIN GS: No bone lesion s or fractu res. Minima l lumbar curvat ure with straig htenin g. Mild to modera te multif ocal degene rative disc endpla te spurri ng and disc space narrow ing, primar tal at L2-L3, L3-L4 and L4-L5. There is minor degene rative retrol isthes is at L3-L4 and L4-L5 levels . No apprec iable spondy lolist hesis or spondy lolysi s. Normal soft tissue s. IMPRES MICHAEL: Multil evel degene rative change s. Nothin g acute. WSN: [id number] Orderi ng Physic urban: Ethan Christie Dictat ed By: Jessica Ash MD Dictat ed Date/T maycol: 9:39 am Review ed By: Jessica Ash MD Signed By: Jessica Ash MD Signed Date/T maycol: 9:39 am Transc ribed By: SNEHAL Transc ribed Date/T maycol: 9:35 am [facility] [address] [place] [address], [address], 10/22/2024 10:39:16 Result Notes Documentation Provider Name and Address Organization Details Recorded Time Xr, Lumbar Spine : Lumbar Spine 2 or 3 Views Reason: chronic left sided low back pain without sciatica COMPARISON: None. FINDINGS: No bone lesions or fractures. Minimal lumbar curvature with straightening. Mild to moderate multifocal degenerative disc endplate spurring and disc space narrowing, primarily at L2-L3, L3-L4 and L4-L5. There is minor degenerative retrolisthesis at L3-L4 and L4-L5 levels. No appreciable spondylolisthesis or spondylolysis. Normal soft tissues. IMPRESSION: Multilevel degenerative changes. Nothing acute. WSN: [id number] Ordering Physician: Alan Christie Dictated By: Hong Rider MD Dictated Date/Time: 10/21/24 9:39 am Reviewed By: Hong Rider MD Signed By: Hong Rider MD Signed Date/Time: 10/21/24 9:39 am Transcribed By: SNEHAL Transcribed Date/Time: 10/21/24 9:35 am Patient Class: Outpatient Alan Christie PA-C [address] [place] [address], [id number], [facility] 10/21/2024 20:26:04 Problems Name Problem SNOMED Code Status Onset Date Resolution Date Notes Provider Name and Address Organization Details Recorded Time Aiyana martin [id number] Completed 02/09/2016 FREDIS [place]renas, [facility] 6 09:07:32 Suspecte d COVID-19 [id number] Completed 08/13/2020 Removal Reason: Problem added by user [email or web address] from the COVID-19 watch flag [facility]ille Gordon null, [facility] 1 11:22:06 Administ ration of bacteria l and viral vaccine Completed 200810/07/2013 RECORDED 03/08/20 09 1:57PM BY BONNIE Ritchie MD, OFFICE VISIT Not Available [facility] 4 13:33:01 Administ ration of bacteria l and viral vaccine Completed 200810/30/2013 RECORDED 03/08/20 09 1:57PM BY BONNIE Ritchie MD, OFFICE VISIT Not Available [facility] 4 12:04:44 Administ ration of bacteria l and viral vaccine Completed 200810/31/2013 RECORDED 03/08/20 09 1:57PM BY BONNIE Ritchie MD, OFFICE VISIT Not Available [facility] 4 03:29:56 Acute hepatiti s C [id number] Completed 201110/07/2013 IMPRESSI ON: DR SOSA FOLLOWS; RECORDED 01/10/20 12 8:32AM BY RANDEE MANCINI MA, ANNOTATI ON/ADDEN DUM Not Available [facility] 4 13:33:00 Insomnia [id number] Completed 201110/07/2013 IMPRESSI ON: SEE BELOW; RECORDED 01/10/20 12 8:32AM BY RANDEE MANCINI MA, ANNOTATI ON/ADDEN DUM Alan Christie PA-C [address] [facility] [address], [place], [address] , [facility] 0 15:58:44 Malaise and fatigue [id number] Completed 201110/07/2013 IMPRESSI ON: FEELS TIRED, MOST LIKELY FORM LACK OF FULL NIGHT SLEEP DUE TO UP IN MIDDLE OF THE NIGHT WITH BM AND CANNOT FALL BACK TO SLEEP, WILL TRY LORAZEPA M PRN. EXERCISE S AND TAKES GREAT CARE OF SELF; RECORDED 01/10/20 12 8:32AM BY RANDEE MANCINI MA, ANNOTATI ON/ADDEN DUM Not Available [facility] 4 13:33:00 Tubercul osis screenin g Completed 201110/07/2013 RECORDED 01/10/20 12 8:32AM BY RANDEE MANCINI MA, ANNOTATI ON/ADDEN DUM Not Available [facility] 4 13:33:01 Ulcerati ve colitis [id number] Completed 201110/07/2013 IMPRESSI ON: RECENT SIGMOIDO SCOPY, ALL IS OGING WELL; RECORDED 01/10/20 12 8:32AM BY RANDEE MANCINI MA, ANNOTATI ON/ADDEN DUM Noemy Chavez MA [facility], [facility] 7 09:37:40 Acute hepatiti s C [id number] Completed 201110/30/2013 IMPRESSI ON: DR SOSA FOLLOWS; RECORDED 01/10/20 12 8:32AM BY RANDEE MANCINI MA, ANNOTATI ON/ADDEN DUM Not Available [facility] 4 12:04:43 Insomnia [id number] Completed 201110/30/2013 IMPRESSI ON: SEE BELOW; RECORDED 01/10/20 12 8:32AM BY RANDEE MANCINI MA, ANNOTATI ON/ADDEN DUM Alan Christie PA-C [address], [place], [address] , [facility] 0 15:58:44 Malaise and fatigue [id number] Completed 201110/30/2013 IMPRESSI ON: FEELS TIRED, MOST LIKELY FORM LACK OF FULL NIGHT SLEEP DUE TO UP IN MIDDLE OF THE NIGHT WITH BM AND CANNOT FALL BACK TO SLEEP, WILL TRY LORAZEPA M PRN. EXERCISE S AND TAKES GREAT CARE OF SELF; RECORDED 01/10/20 12 8:32AM BY RANDEE MANCINI MA, ANNOTATI ON/ADDEN DUM Not Available [facility] 4 12:04:44 Tubercul osis screenin g Completed 201110/30/2013 RECORDED 01/10/20 12 8:32AM BY RANDEE MANCINI MA, ANNOTATI ON/ADDEN DUM Not Available [facility] 4 12:04:44 Ulcerati ve colitis [id number] Completed 201110/30/2013 IMPRESSI ON: RECENT SIGMOIDO SCOPY, ALL IS OGING WELL; RECORDED 01/10/20 12 8:32AM BY RANDEE MANCINI MA, ANNOTATI ON/ADDEN DUM Noemy Chavez MA [facility], [facility] 7 09:37:40 Acute hepatiti s C [id number] Completed 201110/31/2013 IMPRESSI ON: DR SOSA FOLLOWS; RECORDED 01/10/20 12 8:32AM BY RANDEE MANCINI MA, ANNOTATI ON/ADDEN DUM Not Available [facility] 4 03:29:55 Insomnia [id number] Completed 201110/31/2013 IMPRESSI ON: SEE BELOW; RECORDED 01/10/20 12 8:32AM BY RANDEE MANCINI MA, ANNOTATI ON/ADDEN DUM Alan Christie PA-C [address] [address], [place], [address] , [facility] 0 15:58:44 Malaise and fatigue [id number] Completed 201110/31/2013 IMPRESSI ON: FEELS TIRED, MOST LIKELY FORM LACK OF FULL NIGHT SLEEP DUE TO UP IN MIDDLE OF THE NIGHT WITH BM AND CANNOT FALL BACK TO SLEEP, WILL TRY LORAZEPA M PRN. EXERCISE S AND TAKES GREAT CARE OF SELF; RECORDED 01/10/20 12 8:32AM BY RANDEE MANCINI MA, ANNOTATI ON/ADDEN DUM Not Available [facility] 4 03:29:56 Tubercul osis screenin g Completed 201110/31/2013 RECORDED 01/10/20 12 8:32AM BY RANDEE MANCIIN MA, ANNOTATI ON/ADDEN DUM Not Available [facility] 4 03:29:56 Ulcerati ve colitis [id number] Completed 201110/31/2013 IMPRESSI ON: RECENT SIGMOIDO SCOPY, ALL IS OGING WELL; RECORDED 01/10/20 12 8:32AM BY RANDEE MANCINI MA, ANNOTATI ON/ADDEN DUM Noemy Kathy ring, [facility] 7 09:37:40 Hernia of abdomina l cavity [id number] Completed 201110/20/2024 Alan Christie PA-C [address] [facility] [address], [place], [address] , [facility] 5 09:19:29 Benign neoplasm of skin 22216553 Active 2011 Not Available [facility] 3 17:06:24 Patient status finding [id number] Completed 201202/09/2016 RECORDED 04/01/19 13 9:16AM BY BHAVANA BHATIA, OFFICE VISIT FREDIS Arenas, [facility] 6 09:07:27 Cataract [id number] Completed 201202/09/2016 IMPRESSI ON: UNSTABLE . WILL BE HAVING THIS REMOVED. ; RECORDED 04/01/19 13 12:42PM BY MICHELLE MILLER, OFFICE VISIT FREDIS Arenas, [facility] 6 09:07:35 Influenz a vaccine needed [id number] Completed 201202/09/2016 RECORDED 04/01/19 13 9:16AM BY BHAVANA BHATIA, OFFICE VISIT FREDIS Arenas, [facility] 6 09:07:30 Adult health examinat ion Completed 201210/07/2013 IMPRESSI ON: HEALTHY PT, VERY ACTIVE,; RECORDED 04/01/19 13 9:11AM BY JHON ARENAS ON/ADDEN DUM Not Available [facility] 4 13:33:00 Pre-surg galileo evaluati on Completed 201202/09/2016 IMPRESSI ON: KACY IS AT LOW CARDIOPU LMONARY RISK FOR THIS PROCEDUR E. NO FURTHER TESTING NEEDED.; RECORDED 04/01/19 13 12:43PM BY MICHELLE MILLER, OFFICE VISIT Bhavana Bhatia MA [facility], [facility] 6 09:07:23 Adult health examinat ion Completed 201210/30/2013 IMPRESSI ON: HEALTHY PT, VERY ACTIVE,; RECORDED 04/01/19 13 9:11AM BY STEVEN ARENASATI ON/ADDEN DUM Not Available [facility] 4 12:04:43 Adult health examinat ion Completed 201210/31/2013 IMPRESSI ON: HEALTHY PT, VERY ACTIVE,; RECORDED 04/01/19 13 9:11AM BY STEVEN ARENASATI ON/ADDEN DUM Not Available [facility] 4 03:29:56 Ulcerati ve colitis 15836496 Active 2015 Not Available [facility] 3 17:06:24 Low back pain [id number] Completed 201510/20/2024 Alan Christie PA-C [address] [address], [place], [address] , [facility] 5 09:19:34 Viral hepatiti s C 66314222 Active 2015 Not Available [facility] 3 17:06:24 Insomnia 923405457 Active 2019 IMPRESSI ON: SEE BELOW; RECORDED 01/10/20 12 8:32AM BY RANDEE MANCINI MA, ANNOTATI ON/ADDEN DUM Not Available [facility] 3 17:06:23 Panic attack 733971786 Active 2019 Not Available [employer] 3 17:06:23 Tinea cruris 785856138 Active 2021 Not Available [employer] 3 17:06:24 Cough 47388588 Completed 202110/20/2024 Alan Christie PA-C [address], [place], [address] , [facility] 5 09:19:44 Primary erectile dysfunct ion 721204074 Active 2021 Not Available 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 Procedures Surgical History Date Name Laterality Status Provider Name and Address Organization Details Recorded Time 024 Endoscopy of bowel pouch completed Maritza Garcia [facility] 02/11/2024 09:09:13 018 Endoscopy of bowel pouch completed Tonia Solano [facility] 02/21/2018 14:23:56 009 Endoscopic us exam esoph completed Amanda Bautista [facility] 02/18/2016 14:02:57 989 Gastrointestinal Surgery completed Lucinda Falcon MA [facility] 05/27/2020 14:53:28 Imaging Results None recorded. Procedure Notes None recorded. Medical Equipment None Reported. Allergies No known drug allergies Medications Name Sig Start Date Stop Date Status Note LastModified by Organization Details LastModified Time amoxicillin 500 mg capsule TAKE 2 CAPSULES BY MOUTH NOW, THEN 1 THREE TIMES DAILY UNTIL FINISHED 10/16 completed Not Available Not Available Not Available trazodone 50 mg tablet TAKE 1 AND 1/2 TABLETS BY MOUTH DAILY AT BEDTIME 2023 active 7.24 - 1/2 tab qhs prn Not Available Not Available Not Available sildenafil 50 mg tablet Take 1 tablet every day by oral route as directed for 4 days. 2024 active Not Available Not Available Not Avai lable ibuprofen 800 mg tablet 05/26 completed Not Available Not Available Not Available fluconazole 150 mg tablet Take 1 tablet every week by oral route for 30 days. 05/10 completed Not Available Not Available Not Available ciprofloxac in 500 mg tablet 02/20 completed Not Available Not Available Not Available amoxicillin 500 mg tablet 01/18 completed Not Available Not Available Not Available lorazepam 0.5 mg tablet TAKE 1 TABLET BY MOUTH EVERY DAY NEEDED 05/26 completed Not Available Not Available Not Available gentamicin 0.3 % eye drops active Not Available Not Available Not Available ciprofloxac in 0.3 % eye drops 02/08 completed Not Available Not Available Not Available econazole nitrate 1 % topical cream APPLY TO THE AFFECTED AND SURROUNDI NG AREAS OF SKIN DAILY UP TO 2 WEEKS 10/16 completed Not Available Not Available Not Available pantoprazol e 40 mg tablet,ingrid yed release active Not Available Not Available Not Available Phospha Neutral 250 mg tablet active Not Available Not Available No t Available sertraline 25 mg tablet TAKE 1 TABLET BY MOUTH EVERY DAY 06/15 completed Not Available Not Available Not Available methylpredn isolone 4 mg tablets in a dose pack TAKE 6 TABLETS ON DAY 1 DIRECTED ON PACKAGE AND DECREASE BY 1 TAB EACH DAY FOR A TOTAL OF 6 DAYS 01/18 completed Not Available Not Available Not Available ketoconazol e 2 % topical cream APPLY TO AFFECTED AREA EVERY DAY 04/07 completed Not Available Not Available Not Available fluticasone propionate 50 mcg/actuati on nasal spray,suspe nsion SPRAY 2 SPRAYS BY INTRANASA L ROUTE EVERY DAY DIRECTED 10/16 completed Not Available Not Available Not Available clotrimazol e 1 % topical cream APPLY TO THE AFFECTED AND SURROUNDI NG AREAS OF SKIN BY TOPICAL ROUTE 2 TIMES PER DAY IN THE MORNING AND EVENING FOR 4-6 WEEKS. 10/16 completed Not Available Not Available Not Available sertraline 50 mg tablet TAKE 1 TABLET BY MOUTH EVERY DAY 06/15 completed Not Available Not Available Not Available naproxen 500 mg tablet TAKE 1 TABLET TWICE A DAY TAKE WITH FOOD OR MILK 06/15 completed Not Available Not Available Not Available oxycodone 5 mg tablet 10/09 completed Not Available Not Available Not Available escitalopra m 10 mg tablet TAKE 1 TABLET BY MOUTH EVERY DAY 05/26 completed Not Available Not Available Not Available cyclobenzap rine 5 mg tablet Take 1 tablet as needed by oral route at bedtime. 10/07 completed Not Available Not Available Not Available cholestyram ine (with sugar) 4 gram powder for susp in a packet active Not Available Not Available Not Available GaviLyte-G 236 gram-22.74 gram-6.74 gram-5.86 gram oral solution TAKE 8 OUNCE BY MOUTH DIRECTED FOLLOW INSTRUCTI ONS PROVIDED BY OFFICE 06/24 completed Not Available Not Available Not Available Centrum Complete 18 mg-400 mcg tablet Take 1 tablet every day by oral route. active Not Available Not Available No t Available Epclusa 400 mg-100 mg tablet 02/20 completed Not Available Not Available Not Available Fluvirin 4701-4820 45 mcg (15 mcg x 3)/0.5 mL intramuscul ar suspension 02/08 completed Not Available Not Available Not Available Fluzone Quad (PF) 60 mcg (15 mcg x 4)/0.5 mL IM syringe 02/25 completed Not Available Not Available Not Available Flucelvax Quad (PF) 60 mcg (15 mcg x 4)/0.5 mL IM syringe PHARMACY ADMINIST[facility] 05/26 completed Not Available Not Available Not Available Vitals Date Recorded Body height Body mass index (BMI) Body weight Heart rate Oxygen saturation Oxygen saturation in Arterial blood by Pulse oximetry Body temperature Systolic And Diastolic Provider Name and Address Organization Details Last Updated DateTime 3 179.07 cm 22.9 kg/m2 14651.9 6 g 69 /min 99 % 99 % 97.5 [degF] 105/69 mm[Hg] Meche Cagle MA [facility] 3 15:12:41 Date Recorded Body height Provider Name an d Address Organization Details Last Updated DateTime 06/24/2024 179.07 cm Ana Rosa Pedersen MA [facility] 06/24/2024 16:04:06 Date Recorded Body height Body mass index (BMI) Body weight Heart rate Oxygen saturation Oxygen saturation in Arterial blood by Pulse oximetry Body temperature Systolic And Diastolic Provider Name and Address Organization Details Last Updated DateTime 3 179.07 cm 22.1 kg/m2 69713.2 1 g 52 /min 97 % 97 % 98.1 [degF] 105/69 mm[Hg] Justine oDw MA [facility] 3 14:39:08 Date Recorded Body height Body mass index (BMI) Body weight Heart rate Oxygen saturation Oxygen saturation in Arterial blood by Pulse oximetry Body temperature Systolic And Diastolic Provider Name and Address Organization Details Last Updated DateTime 4 179.07 cm 22.4 kg/m2 32305.7 5 g 75 /min 97 % 97 % 98 [degF] 114/74 mm[Hg] Xochitl León MA [facility] 4 13:25:53 Date Recorded Body height Body mass index (BMI) Body weight Oxygen saturation Oxygen saturation in Arterial blood by Pulse oximetry Heart rate Body temperature Systolic And Diastolic Provider Name and Address Organization Details Last Updated DateTime 5 179.07 cm 22.1 kg/m2 10303.8 1 g 98 % 98 % 70 /min 97.3 [degF] 106/64 mm[Hg] Bhavana Bhatia MA [facility] 5 09:01:57 Social History Question Answer Notes LastModified by Organizat ion Details LastModified Time Tobacco Smoking Status Never Smoker Jamal ring [facility] 12/04/2014 14:09:15 Do You Have An Advance Directive? Yes [email or web address] Information not available 06/15/2021 Is Blood Transfusion Acceptable In An Emergency? Yes [email or web address] Information not available 02/09/2016 What Is Your Level Of Caffeine Consumption? Occasional Soda- 3 Times A Month Only Information not available 06/15/2021 How Much Tobacco Do You Chew? None Information not available 02/20/2018 In The 14 Days Before Symptom Onset, Have You Had Close Contact With A Laboratory-confi rmed COVID-19 While That Case Was Ill? No Information not available 06/15/2021 In The 14 Days Before Symptom Onset, Have You Had Close Contact With A Person Who Is Under Investigation For COVID-19 While That Person Was Ill? No Information not available 06/15/2021 Have You Been To An Area Known To Be High Risk For COVID-19? No Information not available 06/15/2021 What Type Of Diet Are You Following? [email or web address] Information not available 06/15/2021 Which Illicit Or Recreational Drugs Have You Used? None Information not available 02/20/2018 Live Alone Or With Others? With Others Daughters And Spouse Information not available 06/15/2021 Do You Take Precautions To Prevent Distracted Driving? Yes [email or web address] Information not available 02/09/2016 How Often Do You Need To Have Someone Help You When You Read Instructions, Pamphlets, Or Other Written Material From Your Doctor Or Pharmacy? Never Information not available 02/20/2018 Have You Served In The ? No [email or web address] Information not available 02/09/2016 Have You Or Anyone In Your Household Had Any Of The Following Symptoms In The Last 14 Days: Sore Throat, Cough, Chills, Body Aches For Unknown Reasons, Shortness Of Breath For Unknown Reasons, Loss Of Smell, Loss Of Taste, Fever At Or Greater Than 100 Degrees Fahrenheit? No [email or web address] Information not available 10/16/2019 Are You Or Anyone In Your Household A Health Care Provider Or Emergency Responder? No [email or web address] Information not available 10/16/2019 To The Best Of Your Knowledge Have You Been In Close Proximity To Any Individual Who Tested Positive For COVID-19? No Information not available 10/16/2019 Have You Recently Traveled To A COVID-19 High Risk Area Or Gathering In The Last 10 Days? No [email or web address] Information not available 05/27/2020 What Was The Date Of Your Most Recent Tobacco Screening? 10/20/2024 [email or web address] Information not available 10/20/2024 How Many Children Do You Have? 3 [email or web address] Information not available 02/09/2016 Do You Use Protection During Sex? No Information not available 06/15/2021 Do You Use Your Seat Belt Or Car Seat Routinely? Yes Information not available 06/15/2021 Seat Belts Used Routinely Yes Information not available 06/15/2021 Are You Sexually Active? No Information not available 06/15/2021 Do You Have Smoke And Carbon Monoxide Detectors In Your Home? Yes Information not available 06/15/2021 At What Age Did You Start Smoking Tobacco? 0 Information not available 02/20/2018 Are You Passively Exposed To Smoke? No [email or web address] Information not available 02/09/2016 How Much Tobacco Do You Smoke? No Information not available 02/14/2017 Do You Use Sunscreen Routinely? Yes [email or web address] Information not available 02/09/2016 How Many Years Have You Smoked Tobacco? 0 Information not available 02/20/2018 Sex: Unknown Functional Status Question Answer Note LastModified by Organizat ion Details LastModified Time Do you or have you ever used any other forms of tobacco or nicotine? No Information not available 10/16/2022 What is your level of alcohol consumption? Occasional 2 glasses once monthly Information not available 10/16/2022 Do you or have you ever used smokeless tobacco? Never used smokeless tobacco [email or web address] Information not available 11/05/2019 Are you currently employed? Yes Information not available 02/14/2017 Are you able to walk independently without assistance or assistive devices? [email or web address] Information not available 06/15/2021 Are you able to care for yourself independently? Yes [email or web address] Information not available 02/09/2016 What is your occupation? [employer] Information not available 02/20/2018 Do you or have you ever used e-cigarettes or vape? Never used electronic cigarettes [email or web address] Information not available 06/15/2021 What is your exercise level? Heavy swim / bike/ run/ weights Information not available 02/20/2018 Mental Status None recorded. Family History Relationship Description Onset Age of this Age Resolved Age Notes LastModified by Organization Details LastModified Time Father Malignant neoplasm of pancreas [email or web address] Not available 2021 10:18:14 Mother Malignant neoplasm of lung mets to brain [email or web address] Not available 02/09/2016 09:11:59 Brother Dupuytren's contracture of finger [email or web address] Not available 06/24/2024 16:06:53 Notes:no fh P Ca or CRC Medical History Condition Response Other Y Hepatitis Y Immunizations Vaccine Type Date Status Note Provider Name and Address Organization Details Recorded Time Influenza, split virus, quadrivalent, preservative 02/01/20 16 completed Maritza ring [facility] 12/28/2022 08:29:04 Influenza, split virus, trivalent, PF 01/03/20 19 [facility] 08:29:04 Influenza, MDCK, quadrivalent, PF 12/27/19 20 [facility]22 08:29:04 COVID-19 vaccine, vector-nr, rS-Ad26, PF, 0.5 mL 06/06/19 21 [facility]/2022 08:29:04 Influenza, split virus, quadrivalent, PF 12/05/19 15 completed Not Available [facility] 04/12/2019 02:22:01 COVID-19 vaccine, vector-nr, rS-ChAdOx1, PF, 0.5 mL 01/19/20 21 completed Maritza ring [facility] 12/28/2022 08:29:04 Influenza, split virus, trivalent, preservative 01/01/20 21 completed Maritza ring, [facility] 12/28/2022 08:29:04 COVID-19 vaccine, vector-nr, rS-Ad26, PF, 0.5 mL 01/20/20 21 completed Maritza ring, [facility] 12/28/2022 08:29:04 zoster recombinant 05/17/19 23 [facility]/28/2022 08:29:04 Influenza, split virus, quadrivalent, PF 12/26/19 23 [facility]/28/2022 08:29:04 COVID-19, mRNA, LNP-S, PF, hu-sucrose, 30 mcg/0.3 mL 12/19/19 24 completed Ana Rosa Suarez-Andrei os, [facility] 06/24/2024 16:05:06 COVID-19, mRNA, LNP-S, PF, hu-sucrose, 30 mcg/0.3 mL 01/19/20 23 completed Ana Rosa Suarez-Andrei os, [facility] 06/24/2024 16:05:06 Influenza, split virus, trivalent, PF 12/19/19 24 completed Ana Rosa Suarez-Andrei os, [place] null, [facility] 06/24/2024 16:05:06 Tdap 03/08/20 09 [facility]/28/2022 08:29:04 influenza, seasonal, intradermal, preservative free 01/10/20 12 [facility]/28/2022 08:29:04 Influenza, split virus, trivalent, preservative 12/25/19 12 completed Maritza ring, [facility] 12/28/2022 08:29:04 Influenza, split virus, quadrivalent, PF 02/15/20 17 completed Not Available [facility] 04/12/2019 02:22:13 Influenza, split virus, quadrivalent, PF 02/21/20 18 completed Not Available [facility] 04/12/2019 02:22:16 Tdap 02/26/20 19 cancelled patient objection Not Available [facility] 04/12/2019 02:21:51 Tdap 06/16/19 22 completed FREDIS Berry [facility] 06/15/2021 13:10:18 Past Encounters Encounter ID Performer Location Encounter Start Date Encounter Closed Date Diagnosis/Indication Diagnosis SNOMED-CT Code Diagnosis ICD10 Code Diagnosis IMO Codes Diagnosis Note [id number] [facility] [address] [facility] [place] [address] 03/08/2009 00:00:00 [id number] [employer] er[address] [facility] [place] [place] [address] 01/10/2012 00:00:00 [id number] [employer] [address] [facility] [facility] [place] [address] 04/01/2012 00:00:00 [id number] Talat Balderas MD Main Office [address] [facility] [address] [place] [address] 12/04/2014 13:58:22 12/04/2014 14:36:40 Needs influenza immunization 663807554 Impacted cerumen 81329933 [id number] Alan Christie PA-C Main Office [address] [address] 02/09/2016 08:41:31 02/09/2016 11:55:20 Adult health examination 157650554 Z00.00 Low back pain 514764036 M54.5 Ulcerative colitis 61664 [address] Sosa, last colonoscop y 2-3 yrs ago, ? next one 2016, will have medical records get copy of last GI note/colon oscopy [id number] Alan Christie PA-C Main Office [address] [facility] [address] [place] [address] 02/14/2017 09:30:31 02/14/2017 10:37:10 Adult health examination 007973046 Z00.00 Needs infl uenza immunization 149499368 Z23 Low back pain 136865852 M54.5 better - rec. Ulcerative colitis [address] Naima villalobos 12.16 - gets q few yrs [id number] Alan Christie PA-C Main Office [address] [facility] [address] [place] [address] 02/20/2018 13:49:03 02/20/2018 14:56:30 Adult health examination 595137881 Z00.00 Needs infl uenza immunization 367531214 Z23 Viral hepatitis C 945412 07 B19.20 finished 12 wks of rx c GI, had viral load earlier today -- f/u c GI tomorrow Ulcerative colitis 63517 K51.90 no meds, but takes metamucil as a bulking agent consider proactive imodium - 1-2 tabs up to 3x/day prn -- d/w GI managed by Dr. Naima villalobos 12.16 - gets q few yrs Low back pain 621261068 M54.5 better, infreq uses m relaxer [id number] Darrell Keller MD Main Office [address] [place] [address] 02/25/2019 14:55:22 02/25/2019 16:24:36 Adult health examination 136870702 Z00.00 Administra tion of viral vaccine 14629488 Z23 Varicella vaccination 68 693379 Z23 Primary er ectile dysfunction 722998753 N52.9 Viral hepatitis C 401521 07 B19.20 finished 12 wks of rx c GI - f/u rna was negative Ulcerative colitis 02614 K51.90 no meds, but takes metamucil as a bulking agent consider proactive imodium - 1-2 tabs up to 3x/day prn -- d/w GI managed by Dr. Naima villalobos 11.18 - gets q few yrs Low back pain 080131645 M54.5 better, infreq uses m relaxer - pt requests refill [id number] Darrell Keller MD [facility] [address] [facility] [address] [facility] [place] [address] 10/08/2019 07:32:44 10/08/2019 13:07:55 Fever 541137272 R50.9 No obvious infectious localizing symptoms except for mild GI issues. Will rule out COVID 19 and consider further evaluation if testing negative and symptoms worsen/per sist. Exposure t o viral disease 7179072036 22480 Z03.818 [id number] Bonnie frazier MD [facility] [address] [address] [facility] [place] [address] 10/10/2019 12:36:15 10/14/2019 09:53:30 Panic attack 285523630 F41.0 Pt thinks sx are anxiety related, time spent > 25 min counseling regarding stress management , sleep. He denies any day time exercise intoleranc e and feels well physically . Agrees to try med before bed for a few nights to see if this helps with reducing panic awakening. If sx persist will proceed with further workup and considerat ion of treating anxiety with SSRI Insomnia 728253294 G47.0 9 reviewed sleep hygeine, pt to call if he has continued trouble. Will use med prn short term [id number] Darrell Keller MD [address] [place] [address] 10/16/2019 13:15:24 10/21/2019 14:52:53 Panic attack 008582011 F41.0 unfort using nightly lately, see below - use this benzo prn if cannot fall back asleep or if has panic attack, cont f/u c therapist wkly Insomnia 295355421 G47.0 9 trial c traz - see above [id number] Darrell Keller MD Main Office [address] [place] [address] 11/05/2019 12:36:00 11/05/2019 13:38:06 Anxiety 06252358 F41.1 See if SSRI helps along with therapy to improve coping skills. Will titrate as tolerated to goal symptom control. Medication mechanism of action discussed and need to be consistent with therapy advised. At the same time will call with any problems after starting rx. Persistent insomnia 1918 16392 G47.09 Has been taking 75mg with good effect. Hopefully will need this and benzo less as SSRI takes effect. [id number] Bonnie frazier MD [address] [place] [address] 11/11/2019 13:06:54 11/12/2019 07:41:20 Anxiety 51699889 F41.9 see HPI. is starting counseling , may hold on starting sertraline for a few days to see how he feels. did not feel well on lexapro. 3 week telehealth f/u Insomnia 854714317 G47.0 9 using lorazepam as needed. [id number] Bonnie [facility]raz[facility] [address] [place] [address] 12/02/2019 12:57:22 12/02/2019 14:25:53 Insomnia 059613614 G47.09 trazodone really helping, will taper off lorazepam Panic attack 488926826 F 41.0 no recent attacks, therapy really helping and sleep is much better Anxiety 36265011 F41.9 in counseling and taking sertraline 25mg, he may increase to 50mg and let me know.. has a PE 03/14with [facility], if wants sooner visit can call. [id number] Bonnie frazier MD Main Office [address] [place] [address] 05/27/2020 14:51:22 05/27/2020 16:19:25 Adult health examination 273919461 Z00.00 Pt is in good general health. Social and family history reviewed. Immunizati ons reviewed, will be gettig covid vaccine, advised annual flu shot. He is upt to date on dental and eye providers, Reviewed diet and exercise. Due for lab evaluation . Ulcerative colitis 14715 004 K51.90 Get screening of pouch with Dr Sosa, in past inflammati on only, no dysplasia. BMs stable and controlled at this time, no bleeding. Anemia due to unknown mechanism 70805077 D64.9 Pt with history of anemia, UC, will check labs. Anxiety 05963273 F41.9 Pt doing well in general, has support for issues with his son, sleeping better Declines any interventi oin at this time. [id number] Darrell Keller MD [facility] [address] [place] [address] 01/18/2021 08:10:42 01/18/2021 12:26:36 Anxiety 86223398 F41.9 feeling sig better - pt would like to wean sert and traz - rec. first wean/taper off of sertraline - decrease to 25mg 3x/wk x 2 wks, then 2x/wk x 2 wks, then q wk x 1 - see below Insomnia 008991140 G47.0 9 see above - cont traz 75mg qhs as dir - in 2 wks lower to 50mg qhs x 2wk, then 25mg qhs x 2wks, then 25mg 3x/wk x 2 wks, then 2x/wk x 2 wks, then q wk x 1 advised pt if having difficulty c above taper then to go back up by one 'rung on the ladder' and take for 1 month instead of 2 wks for a longer/slo wer taper [id number] Darrell Keller MD Main Office [address] [place] [address] 06/15/2021 10:17:37 06/15/2021 11:36:26 Adult health examination 791839005 Z00.00 Ulcerative colitis 09794 004 K51.90 no meds, but takes metamucil as a bulking agent consider proactive imodium - 1-2 tabs up to 3x/day prn -- d/w GI managed by Dr. Sosa - last colon 11.18 - gets q few yrs -- pt has rec'd recall letter - cont f/u c gi Insomnia 425865868 G47.0 9 stable lately Screening for cardiovascular system disease 768581240 Z13.6 Varicella vaccination 68 793165 Z23 Administra tion of diphtheria, pertussis, and tetanus vaccine 596672711 Z23 Skin lesion 36065556 L98 .9 rec skin check c derm [id number] Codey Love MD Main Office [address] [facility] [address] [place] [address] 03/23/2022 14:57:19 03/23/2022 15:44:42 Tinea cruris 746310002 B35.6 will tx with ketoconazo le topically once daily x 3 weeks. use cotton underwear, loose fitting clothing, may air out at night. If sx do not resolve please call/ return Primary er ectile dysfunction 625322736 N52.9 refill provided Cough 84358802 R05.9 ? PND vs post viral cough -flonase daily x at least 10 days, if not better will get XR. Insomnia 677635633 G47.0 9 weaning schedule provided- take 50mg x 1 week, then 25mg x 1 week, then 12.5mg x 1 week then stop med. If diff with sleep please call/ return [id number] Oriana Coats MD Main Office [address] [place] [address] 04/07/2022 14:53:43 04/07/2022 15:25:54 Tinea cruris 342763646 B35.6 Cough 52896138 R05.9 Given ~ 8 weeks will get xrAdvised regular use.follow up in 1 mo if still present he may need further work up.Denies sx of GERD. [id number] Darrell Keller MD Main Office [address] [place] [address] 05/10/2022 14:55:04 05/10/2022 15:39:10 Tinea cruris 241433231 B35.6 no sig help c ketoconazo le, then clotrimazo le c fluconazol e po q wk x 4 ---- pt is active, stepper, swimmer, wts - this never fully resolved - stop zeabsorb - use this in the future p this has resolved - meanwhile, trial c econazole --- then rec otc zinc oxide in low % ac long workouts (to reduce chafing/sw eat) [id number] Darrell Keller MD Main Office [address] [place] [address] 10/16/2022 14:22:35 10/16/2022 15:32:05 Adult health examination 702810121 Z00.00 Lesion of skin of face 7096301135 06 L98.9 encouraged pt to f/u c derm - sees them regularly Hyperlipidemia 55466567 E78.5 Insomnia 462342180 G47.0 9 stable lately on trazodone, he may consider cbd in future - advised to bridge/slo wly wean traz Ulcerative colitis 99155 004 K51.90 no meds, but takes metamucil as a bulking agent consider proactive imodium - 1-2 tabs up to 3x/day prn -- d/w GI managed by Dr. Naima Dwyer [facility] 11.18 - gets q few yrs -- pt has rec'd recall letter - cont f/u c gi [id number] Darrell Keller MD Main Office [address] [facility] [address] [place] [address] 10/18/2023 13:19:26 10/18/2023 14:18:40 Adult health examination 401757281 Z00.00 Anxiety 70985295 F41.9 feeling sig better - pt would like to wean sert and traz - rec. first wean/taper off of sertraline - decrease to 25mg 3x/wk x 2 wks, then 2x/wk x 2 wks, then q wk x 1 - see below 7.24 - unfort extra stress d/t son c special needs, sees n family therapy, cont traz as dir Ulcerative colitis 49394 004 K51.90 no meds, but takes metamucil as a bulking agent consider proactive imodium - 1-2 tabs up to 3x/day prn -- d/w GI managed by Dr. Naima [place] 11.18 - gets q few yrs -- pt has rec'd recall letter - cont f/u c gi 7.24 - stable, will get updated eval Skin lesion 98171673 L98 .9 cont skin check c derm Nocturia 140496021 R35.1 [id number] Darrell Keller MD Telehealt [facility] [address] [facility] [address] [place] [address] 06/24/2024 13:15:19 06/25/2024 12:02:45 Primary erectile dysfunction 971958462 N52.9 pt requests refill Dupuytren' s disease of palm 465942202 M72.0 pt's brother has this, and pt exhibiting early changes to palmwill get hand specialist eval Insomnia 294500714 G47.0 9 stable lately on trazodone, he may consider cbd in future - advised to bridge/slo wly wean traz 4.25 - pt has been on traz 50mg 1/2 tab x ~ 2 yrs, having difficulty coming off this med - rec very slowly sub out melatonin 5mg until work this in up to every night on melatonin (increase melatonin 1 night per week x at least 7 weeks) Skin lesion 35393596 L98 .9 cont skin check c derm [id number] Darrell Keller MD Main Office [address] [place] [address] 10/20/2024 08:33:43 10/20/2024 09:44:12 Adult health examination 015459184 Z00.00 Dupuytren' s disease of palm 595054301 M72.0 pt's brother has this, and pt exhibiting early changes to palmwill get hand specialist eval 7.25 - seen by hand surgeon, cont f/u Primary er ectile dysfunction 776809814 N52.9 prn viagra Insomnia 697610162 G47.0 9 stable lately on trazodone, he may consider cbd in future - advised to bridge/slo wly wean traz 4.25 - pt has been on traz 50mg 1/2 tab x ~ 2 yrs, having difficulty coming off this med - rec very slowly sub out melatonin 5mg until work this in up to every night on melatonin (increase melatonin 1 night per week x at least 7 weeks) 7.25 - has been off traz x few months, doing ok on melatonin 5mg - feeling better in general Skin lesion 01057809 L98 .9 cont skin check c derm Ulcerative colitis 61311 004 K51.90 no meds, but takes metamucil as a bulking agent consider proactive imodium - 1-2 tabs up to 3x/day prn -- d/w GI managed by Dr. Sosa - last colon 11.18 - gets q few yrs -- pt has rec'd recall letter - cont f/u c gi 7.24 - stable, will get updated eval 7.25 - stable, colon utd, cont f/u c gi, prn pepto, cont metamucil, consider imodium qd/prn Generalize d anxiety disorder 80188207 F41.1 564886 unfort using nightly lately, see below - use this benzo prn if cannot fall back asleep or if has panic attack, cont f/u c therapist wkly 7.25 - fairly stable - sig stress c son - sees [facility] wkly Reduced libido 6223700 R 68.82 81733408 Impaired f asting glycemia 147105291 R73.01 073286 Chronic low back pain 27 4704209 M54.50 G89.29 77110481 has been using ice, heat, hep, prn chiropract orwill check xray and get pmr eval Health Concerns Section Related Observation LastModified by Organization Detai ls LastModified Time None Recorded Concern Status LastModified by Organization Details LastModified Time None Recorded Advance Directives Directive Y: Payers Insurance Date Sequence Insurance Name Policy Number Policy Khan Covered Member ID Khan Member ID Guarantor Name 11/03/2024 1 [place] [id number] Noiel B Swathi [id number] Noiel Swathi 01/18/2021 1 [place] [id number] Noiel B Swathi [id number] Noiel Swathi Notes Date Note Type Note Provider Name and Address Organization Details Recorded Time 05/10/2022 text/html Patient seen in office last month and treated and presenting today with reoccurring symptoms. completed med fluconazole and continuing to use prescription cream and OTC powder z-zorb however skin still very irritated rev last ov note 1.13.23 Alan Christie PA-C [address], [address], [facility] 05/10/2022 15:40:06 10/16/2022 text/html Generic HPI TemplateReported by Patient here for annual pe. Alan Christie PA-C [address] [address], [place], [address], [facility] 10/16/2022 15:33:12 10/18/2023 text/html Generic HPI TemplateReported by Patient here for annual pe. Alan Christie PA-C [address] [address], [place], [address], [facility] 10/18/2023 14:31:13 06/24/2024 text/html Patient c/o hand pain. The knuckle of his right hand, middle finger is enlarged.His brother has Dupuytren's contracture. Alan Christie PA-C [address] [address], [place], [address], [facility] 06/24/2024 16:41:50 10/20/2024 text/html Generic HPI TemplateReported by Patient here for annual pe. Alan Christie PA-C [address] [address], [place], [address], [facility] 10/20/2024 20:19:22
--- OUTSIDE RECORDS SUMMARY | 2025-01-30 10:46 | XMS_ITS | Patient Health Record ---
Author Organization [facility] Address [address] [place] [address] Care Team Providers Care Sales Representative Livestock Name Role Phone Cammy Orozco MD, [place] Primary Care Prov ider Unavailable Alphonso Pimentel Unavailable [phone] Allergies Allergen (clinical drug ingredient) Drug/Non Drug Allergy documented on EMR Reaction Allergy Type Onset Date Status Dairy Digestive Unknown Drug Allergy A ctive Eggs Unknown Drug Allergy Active Reason For Referral No Information Problems Problem Type SNOMED Code ICD Code Onset Dates Problem Status W/U Status Risk Notes Problem Calcaneal spur (70803525) Calcaneal spur (726.73) Active confirmed Problem Plantar fasciitis (093732937) Plantar Fasciitis (728.71) Active confirmed Lateral Plan Of Treatment No Information Insurance Providers Payer Name Payer Address Payer Phone Subscriber Number Group Number Insured Name Patient Relationship to Insured Coverage Start Date Coverage End Date [facility] [employer] [address] [place] [address] [id number] Kacy Echevarria Self - patient is the insured Medical (General) History Medical History History ICD Code Crohns disease Transfusions Surgical History Surgery Date(Month/Year) colectomy 1988
== END 2025-01-30 10:13 | disposition home or self-care (01) ==
LOC: HO.HPHYS 09:30
PROVIDERS: PCP Physician Assistant Medical; Visit Provider Physician Assistant
DX: M47.9 Spondylosis, unspecified (principal); M54.9 Dorsalgia, unspecified
CPT/HCPCS: 99204